=== PATIENT | male | born 1940 | race African-American/Black ===

== ENCOUNTER 2018-05-18 18:21 | Emergency (ER) | payer OTHER ==
[2018-05-18] MEDS: ALBUTEROL 0.083% (NEB) 2.5 MG/3 ML AMP HHN (18:43)
[2018-05-18] MEDS: IPRATROPIUM (NEB) 0.5 MG/2.5 ML AMP HHN (18:43)
[2018-05-18 19:04] LABS: ADD MAN DIFF? NO
[2018-05-18 19:06] LABS: WHITE BLOOD COUNT 37.6 10^3/ul (4.8-10.8)
[2018-05-18 19:06] LABS: ABNORMAL IP MESSAGE 1; BASOPHIL # 0.1 10^3/ul (0.0-0.1); BASOPHILS % 0.2 % (0.0-2.0); HEMATOCRIT 27.1 % (42.0-52.0); HEMOGLOBIN 9.1 g/dl (14.0-18.0); LYMPHOCYTES # 1.5 10^3/ul (0.8-2.9); LYMPHOCYTES % 3.9 % (15.0-51.0); MEAN CORPUSCULAR HEMOGLOBIN 29.4 pg (29.0-33.0); MEAN CORPUSCULAR HGB CONC 33.6 g/dl (32.0-37.0); MEAN CORPUSCULAR VOLUME 87.7 fl (82.0-101.0); MEAN PLATELET VOLUME 10.2 fl (7.4-10.4); MONOCYTE # 1.5 10^3/ul (0.3-0.9); NEUTROPHIL # 32.1 10^3/ul (1.6-7.5); NEUTROPHILS % 85.3 % (39.0-77.0); PLATELET COUNT 380 10^3/UL (140-415); POSITIVE DIFF @See below; RED BLOOD COUNT 3.09 10^6/ul (4.70-6.10); RED CELL DISTRIBUTION WIDTH 16.5 % (11.5-14.5)
[2018-05-18 19:10] LABS: PATH REVIEW? YES
[2018-05-18 19:22] LABS: ANION GAP 20 (8-16); BLOOD UREA NITROGEN 81 mg/dl (7-20); CALCIUM 8.3 mg/dl (8.4-10.2); CARBON DIOXIDE 18 mmol/L (21-31); CHLORIDE 101 mmol/L (97-110); CREATININE 4.72 mg/dl (0.61-1.24); MAGNESIUM 3.1 mg/dl (1.7-2.5); PHOSPHORUS 6.3 mg/dl (2.5-4.9); SODIUM 133 mmol/L (135-144)
[2018-05-18 19:27] LABS: GLUCOSE 615 mg/dl (70-220); POTASSIUM 6.1 mmol/L (3.5-5.1)
[2018-05-18 19:31] LABS: MODE ROOM AIR; MetHgb Venous 0.4 %; Sample Type Blood venous; Site VENOUS LINE; Venous COHb 0.3 %; Venous Fraction OxyHgb 85.7 %; Venous Oxygen Sat 86.3 mmHG (55.0-75.0)
[2018-05-18 19:33] LABS: TROPONIN-I < 0.010 ng/ml (0.000-0.120)
[2018-05-18] MEDS: INSULIN LISPRO 100 UNIT/ML VIAL SC (19:47)
[2018-05-18 20:11] LABS: LACTIC ACID 1.3 mmol/L (0.5-2.0)
[2018-05-18] MEDS: CEFTRIAXONE 1 GM/50 ML (PMX) 50 ML IVPB (20:37)
[2018-05-18] MEDS: morphine 4 MG/ML VIAL IV (21:15)
[2018-05-18 21:33] LABS: LACTIC ACID 1.5 mmol/L (0.5-2.0)
[2018-05-18] MEDS: LIDOCAINE 2% 20 ML UROJET SYRINGE MM (21:33)
[2018-05-19 07:15] LABS: ANISOCYTOSIS 2+ (0-0); BAND NEUTROPHILS #M 3.3 10^3/ul (0.0-0.6); BAND NEUTROPHILS % (M) 9 % (0-4); LYMPHOCYTES #M 1.1 10^3/ul (0.8-2.9); LYMPHOCYTES % (M) 3 % (15-51); MONOCYTE #M 0.7 10^3/ul (0.3-0.9); MONOCYTES % (M) 2 % (0-11); PLATELET ESTIMATE NORMAL; SEG NEUT #M 33.6 10^3/ul (1.6-7.5); SEGMENTED NEUTROPHILS (M) % 86 % (39-77); SMUDGE%M 2 % (0-0)
== END 2018-05-19 00:29 | disposition short-term general hospital (02) ==
LOC: E/R 05-19 00:29
DX: D72.829 Elevated white blood cell count, unspecified (principal); R53.1 Weakness; R33.9 Retention of urine, unspecified; E11.65 Type 2 diabetes mellitus with hyperglycemia; N30.90 Cystitis, unspecified without hematuria; E87.5 Hyperkalemia; I10 Essential (primary) hypertension; Z79.4 Long term (current) use of insulin; Z79.01 Long term (current) use of anticoagulants
CPT/HCPCS: 36415; 71045; 80048; 82803; 82962; 83605; 83735; 84100; 84484; 85025; 87040; 93005; 94664; 96372; 96374; 96375; 99291-25